=== PATIENT | male | born 1975 | race Two or more races ===

== ENCOUNTER → 2016-10-10 | Day surgery (SDC) | payer OTHER ==
[~2016-10-10] MED LIST: ADAL40PE SQ; FENTANYL PF 100 MCG/2 ML VIAL. IV PRN; HYDROMORPHONE 2 MG/ML VIAL. IV PRN; IV RINGERS,LACTATED 1000ML 1,000 ML IV SCH; LIDOCAINE 1% 1 ML SYRINGE. ID PRN; LIDOCAINE 2% PF Vial for OR 5 ML VIAL. ONE; MESA1.2T PO; MORPHINE SULFATE 2 MG/ML DISP.SYRIN. IV PRN; ONDANSETRON PF 4 MG/2 ML VIAL. IV PRN; PROCHLORPERAZINE 10 MG/2 ML VIAL. IV PRN; PROPOFOL 40 ML IV ONE
[2016-10-10 09:06] VITALS: BP 118/74
--- NOTE | 2016-10-11 01:59 | CONS ---
DATE OF CONSULTATION: 10/10/2016 REFERRING PHYSICIAN: Dr. Kandace Groves. HISTORY: This is a 41-year-old male with past medical history significant for chronic ulcerative colitis seen for surveillance with biopsies. He has had disease for 10+ years on maintenance at this time with Humira 40 mg subQ q. 2 weeks. He denies any extraintestinal manifestations. He is a former smoker. Weight and appetite have been stable. There has been no bleeding, had several movements per day without blood and is without additional complaints. PAST MEDICAL HISTORY: History of ulcerative colitis. ALLERGIES: None. MEDICATIONS: Humira 40 mg subQ q. 2 weeks. SOCIAL HISTORY: He is a social drinker. He is a former smoker. FAMILY HISTORY: Significant for diabetes in his father, hypertension in father____. REVIEW OF SYSTEMS: Per records. PAST SURGICAL HISTORY: Status post vasectomy. PHYSICAL EXAMINATION: GENERAL: Reveals a well-nourished, well-developed male. VITAL SIGNS: Temperature is 97.3, pulse 60, respirations 20, blood pressure 130/75. HEENT: Normocephalic and atraumatic head. Pupils and extraocular muscles not tested. Sclerae anicteric. NECK: Supple. LUNGS: Clear. CARDIOVASCULAR: Reveals an S1, S2 without S3, S4 or appreciable murmur. ABDOMEN: Soft abdomen, normal bowel sounds, without appreciable hepatosplenomegaly. EXTREMITIES: Reveals no cyanosis, clubbing or edema. IMPRESSION: Chronic ulcerative colitis, ____ be maintained on Humira 40 mg subQ q. 2 weeks. TATYANA KIM MD DR: MEGAN/nts JOB#: [id number] / [id number] [facility] TATYANA KIM MD
--- NOTE | 2016-10-13 17:05 | PATHOLOGY ---
PATHOLOGY REPORT * * * * * * * * FINAL DIAGNOSIS: A. Right colon biopsies: - Colonic mucosa showing focal mid chronic inflammation and focally hyperplastic mucosal-associated lymphoid tissue. B. Colonic mucosa, transverse colon biopsy: - Colonic mucosa showing focally hyperplastic mucosal-associated lymphoid tissue. C. Colonic mucosa, left colon biopsies: - Colonic mucosa showing focally hyperplastic mucosal-associated lymphoid tissue. COMMENT: Sections of the right colon biopsy reveal segments of colonic mucosa showing focal mild chronic inflammation and focally hyperplastic mucosal-associated lymphoid tissue. Sections of the transverse colon and left colon biopsies appear similar and reveal segments of colonic mucosa showing focally hyperplastic mucosal-associated lymphoid tissue. There is no evidence of active chronic destructive colitis. There are no crypt abscesses or granulomas. There is no evidence of ulceration. There is no dysplasia or evidence of malignancy. (JPM:csd; d/t: 10/13/2016) REPORT ELECTRONICALLY SIGNED BY: Kenneth Orosco M.D. DATE/TIME: 10/13/2016 17:01 * * * * * * * * GROSS PATHOLOGY: A. Received in formalin labeled "Kumar Kee, right colon," are seven segments of collins soft tissue measuring 1.1 x 1.1 x 0.2 cm in aggregate dimensions and ranging from 0.1 to 0.8 cm in maximum dimension. The specimen is submitted entirely in cassette A1. B. Received in formalin labeled "Kumar Kee, transverse colon," are seven segments of collins soft tissue measuring 1.5 x 1.1 x 0.2 cm in aggregate dimensions and ranging from 0.4 to 0.8 cm in maximum dimension. The specimen is submitted entirely in cassette B1. C. Received in formalin labeled "Kandace Harringotn, left colon," are six segments of collins soft tissue measuring 1.1 x 1.1 x 0.2 cm in aggregate dimensions and ranging from 0.3 to 0.7 cm in maximum dimension. The specimen is submitted entirely in cassette C1. (CAA; 10/10/2016) INITIAL CPT CODE(S): A; 79000 B; 81458 C; 35409 Professional services performed by [facility] at [address] [address] Technical services performed by [facility] at [address] [place] [address], [address], [place] [address]. Fausto Foy, fax: SPECIMEN(S) RECEIVED: A.Right colon B.Transverse colon C.Left colon CLINICAL HISTORY: UC. PATIENT: KUMAR KEE /AGE: 1007/02/1975 (Age: 41) PATIENT #: [id number] ALT CASE #: SPECIMEN COLLECTION DATE: 10/10/2016 SPECIMEN RECEIVED DATE: 10/10/2016 [facility] - [address] [place] [address] - PHONE: [phone] * * * END OF REPORT * * *
== END ==
LOC: SURG 07:04
PROVIDERS: ATTEND Internal Medicine Gastroenterology
DX: K51.00 Ulcerative (chronic) pancolitis without complications (principal); K64.8 Other hemorrhoids
CPT/HCPCS: 45380; J2704; 88305